=== PATIENT | male | born 1985 | race Two or more races ===

== ENCOUNTER 2022-10-07 13:24 | Emergency (ER) | payer BC ==
[~2022-10-07] VITALS: Ht 185.4 cm; Wt 65.3 kg
--- NOTE | 2022-10-07 13:29 | NUR ---
BIB [facility] FROM HOME,C/O RIGHT FLANK PAIN X 8 HRS. PAIN 8/10 ON PAIN SCALE. VITALS ARE WITHIN NORMAL LIMITS. AWAITING MD ORDERS.
[2022-10-07 14:08] LABS: BILIRUBIN,URINE 1+ (NEGATIVE); COLOR,URINE YELLOW (YELLOW); LEUKOCYTE ESTERASE ,URINE NEGATIVE (NEGATIVE); NITRITE, URINE NEGATIVE (NEGATIVE); PROTEIN,URINE TRACE mg/dl (NEGATIVE); UGLUCOSE NEGATIVE (NEGATIVE); UROBILINOGEN,URINE 0.2 EU/dL (0.2)
[2022-10-07] MEDS ORDERED: ACETAMINOPHEN ES 500 MG TABLET ONE (14:18)
[2022-10-07] MEDS ORDERED: KETOROLAC TROMETHAMINE 15 MG/ML VIAL ONE (14:18)
[2022-10-07] MEDS: ACETAMINOPHEN ES 500 MG TABLET PO ONE (14:20)
[2022-10-07] MEDS: IV NS 0.9% 1,000 ML BAG IV ONE (14:20)
[2022-10-07] MEDS: KETOROLAC TROMETHAMINE INJ 30 MG/ML VIAL IV ONE (14:20)
--- NOTE | 2022-10-07 14:20 | NUR ---
IV ESTABLISHED R AC 20G. LABS DRAWN AND COLLECTED AT BEDSIDE.
--- NOTE | 2022-10-07 14:22 | NUR ---
PT UNABLE TO PROVIDE URINE AT THIS TIME, WILL ENCOURAGE AT A LATER TIME.
[2022-10-07 14:36] LABS: BASOPHILS % (AUTO) 0.4 % (0.0-2.0); EOSINOPHILS % (AUTO) 0.8 % (0.0-6.0); HEMATOCRIT 36 % (39-51); HEMOGLOBIN 11.6 g/dL (13.5-17.5); LYMPHOCYTES # (AUTO) 1.3 K/uL (0.8-4.8); LYMPHOCYTES % (AUTO) 13.6 % (20.0-44.0); MEAN CORPUSCULAR HGB CONC 32 g/dl (31.0-36.0); MEAN CORPUSCULAR VOLUME 85 fL (80-96); MONOCYTES # (AUTO) 1.1 K/uL (0.1-1.30); NEUTROPHILS % (AUTO) 73.2 % (43.0-81.0); PLATELET COUNT (AUTO) 593 K/uL (150-450); RED BLOOD CELL COUNT(AUTO) 4.24 MIL/uL (4.5-6.0); WHITE BLOOD COUNT (AUTO) 9.6 K/uL (4.3-11.0)
[2022-10-07 14:54] LABS: ALBUMIN 2.4 g/dL (3.4-5.0); BILIRUBIN,DIRECT 0.1 mg/dL (0.0-0.2); BILIRUBIN,TOTAL 0.2 mg/dL (0.2-1.0); CREATININE 0.7 mg/dL (0.6-1.3); POTASSIUM 4.6 mmol/L (3.5-5.1); TOTAL PROTEIN, SERUM 6.1 g/dL (6.4-8.2)
[2022-10-07 15:14] LABS: BACTERIA,URINE Few /HPF (None Seen); MUCUS,URINE Moderate /LPF (None Seen); RBC,URINE 0-2 /HPF (0-2); SQUAMOUS EPITHELIAL CELL,UR None Seen /HPF (None Seen); WBC,URINE 0-2 /HPF (0-3)
[2022-10-07] MEDS ORDERED: IBUP-1955 PO ×2 (16:20→16:38)
[2022-10-07] MEDS ORDERED: CIPR-262 PO ×2 (16:22→16:38)
[2022-10-07 16:44] VITALS: BP 137/85
--- NOTE | 2022-10-07 16:44 | NUR ---
Patient discharged to home in stable condition. Written and verbal after care instructions given. Patient verbalizes understanding of instruction.IV removed. Catheter intact and site benign. Pressure and 4x4 applied to site. No bleeding noted.
== END 2022-10-07 16:44 | disposition home or self-care (01) ==
LOC: ER 13:26
DX: R10.9 Unspecified abdominal pain (principal); Z85.028 Personal history of other malignant neoplasm of stomach; Z60.2 Problems related to living alone
CPT/HCPCS: 99285; 74176; 96374; 96361; 85025; 80048; 83690; 80076; 81001; 36415; J7030; J1885